=== PATIENT | female | born 1980 | race Caucasian/White ===

== ENCOUNTER → 2017-02-26 | Outpatient (CLI) | payer MEDICAID ==
--- NOTE | 2017-02-27 11:56 | WWHP ---
DATE OF SERVICE: 02/26/2017 CHIEF COMPLAINT: The patient is here for her routine gynecologic exam. HPI: This is a 36-year-old G1, P1 with an LMP of 02/22/17. The patient has a ParaGard IUD in place since 2011. She states she has been having worsening moodiness especially during the one week prior to each period. She also can feel very angry at those times. She has also noticed her periods are heavier with the ParaGard IUD. She states she has had similar symptoms in the past and had used oral contraceptives even while on the ParaGard IUD. She would like to go back on oral contraceptives for these symptoms. She had previously used Prozac for similar symptoms, but did not do well with this. She also used Wellbutrin, which caused her to be very tired. She had used the Mirena IUD in the past, but this caused frequent yeast infections. She feels strongly that she would like to use oral contraceptives, but continue with the ParaGard IUD in place. She states Triphasic oral contraceptives seem to make symptoms worse and would like to go on a monophasic pill. 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 She denies any other medical problems. MEDICATIONS: 1. Ventolin inhaler p.r.n.. 2. Multivitamin daily. 3. Tums 1 daily. 4. Vitamin D supplement 5000 units daily, which she only takes during the winter. 5. Anton Wort daily. ALLERGIES: No known drug allergies. PAST SURGICAL HISTORY: Surgery for a patent ductus arteriosus at 2 weeks of age. PAST MASTICATOR HISTORY: Menses are regular every 35 days and she has not history of STDs. SOCIAL HISTORY: She denies tobacco and drug use and has 4 to 5 alcoholic drinks per week. 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 FAMILY HISTORY: Grandmother had TIAs. Grandfather had lung cancer and heart disease and her other grandfather had diabetes. REVIEW OF SYSTEMS: She has gained about 7 pounds over the last year. She denies respiratory or cardiac problems. GI: She has had some constipation, which is not new for her. PHYSICAL EXAM: Blood pressure is 106/71. Height 5 feet 5 inches. Weight 117 pounds. Temperature 98.4. Pulse is 92. This is a well-developed, well-nourished white female who is alert and oriented x3 in no acute distress. HEENT is within normal limits. NECK: Supple without mass or thyromegaly. CHEST AND LUNGS: Clear to auscultation. HEART: Regular rate and rhythm. Breasts are without mass or discharge. Axillary exam is negative for adenopathy. BACK: Negative for CVA tenderness. ABDOMEN: Soft, nontender without palpable masses. PELVIC EXAM: Normal external genitalia .Cervix and vagina reveal a small amount of menstrual blood in the vagina consistent with her menses. The cervix appears normal. The IUD string protrudes from the cervix about 1 cm. There is no cervical motion tenderness. The uterus is mid position, nongravid size and nontender. There are no palpable adnexal masses or tenderness. Rectal exam was refused by the patient. EXTREMITIES: Nontender. IMPRESSION: 1. A 36-year-old female with normal gynecologic exam. 2 . ParaGard IUD is in place. 3. Premenstrual symptoms consisting of moodiness and feelings of anger. 4. Mild hypermenorrhea. PLAN: 1. Pap smear was deferred, since she had a normal one less than 2 years ago. 2. Self-breast examination was discussed. 3. We have discussed her symptoms and we have discussed options including meclofenamate sodium and SSRI types of medications. She would like to go back on oral contraception. We have discussed risks of oral contraception including increased risk for blood clots. She understands these things and would like to start on monophasic control pill. A prescription for Ortho-Cyclen was given to the patient and she will start this today and use as directed. 4. She will return in one year and p.r.n. MTDD
== END ==
LOC: WWCWWP 11:23
PROVIDERS: ATTEND Obstetrics & Gynecology
DX: Z01.419 Encounter for gynecological examination (general) (routine) without abnormal findings (principal)

== ENCOUNTER → 2018-03-04 | Outpatient (CLI) | payer MEDICAID ==
[2018-03-04 11:51] VITALS: BP 121/84; PULSE 77; TEMP 98; BMI 44.4
--- NOTE | 2018-03-04 12:37 | P.HPOB ---
History of Present Illness H&P Date: 03/04/18 Chief Complaint: The patient is here for her routine gynecologic exam. This is a 37-year-old with an LMP of 02/16/2018. She has a ParaGard IUD in place since January 2012. She did use control pills for most of the year because of various symptoms including premenstrual moodiness and heavy menses. She stopped the control pill last month because of breast soreness and vaginal dryness. She is complaining of moodiness the week before her menses. This improves during her menstrual flow, but she feels depressed after her menses has ended. She previously was on Cymbalta and later changed to Effexor. She felt ill when she missed pills and when she tried to stop the effects are in the past. She has seen a psychologist in the past. She denies any current suicidal ideation, however, she states the depression can get pretty bad at times. She is otherwise without complaints. Review of Systems The patient has gained 4 pounds over the last year. She denies respiratory or cardiac problems. G.I.: occasional constipation. Past Medical History Additional Past Medical History / Comment(s): Mild emphysema related to being born prematurely. Past TRANSPORTATION LEAD history: she has a ParaGard IUD in place. She has no history of STDs. History of Any Multi-Drug Resistant Organisms: None Reported Additional Past Surgical History / Comment(s): Surgery for patent ductus arteriosus at 2 weeks of age. 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 - Past Family History Mother Family Medical History: No Reported History Additional Family Medical History / Comment(s): Grandfather had flung and pancreatic cancer along with heart disease. Medications and Allergies Home Medications Medication Instructions Recorded Confirmed Type Multivit with Calcium,Iron,Min 1 each PO DAILY 05/06/15 03/04/18 History [Women's Daily Multivitamin] Bryan's Wort 300 mg PO TID 03/04/18 03/04/18 History Allergies Allergy/AdvReac Type Severity Reaction Status Date / Time No Known Allergies Allergy Verified 03/04/18 11:46 Exam Vital Signs Temp Pulse BP 07/17/18 11:46 98.0 F 77 121/84 Intake and Output 03/03/18 03/04/18 03/04/18 22:59 06:59 14:59 Other: Weight 121 kg Height 5'5", correction: weight 121 pounds, BMI 20.1. This is a well-developed well-nourished white female who is alert and oriented times 3 in no acute distress. HEENT: Within normal limits. NECK: Supple without mass or thyromegaly. CHEST AND LUNGS: Clear to auscultation. HEART: Regular rate and rhythm. BREASTS: Are without mass or discharge. AXILLARY EXAM: Negative for adenopathy. BACK: Negative for CVA tenderness. ABDOMEN: Soft, nontender, without palpable masses. PELVIC EXAM: Normal external genitalia. Cervix and vagina appear normal with a white IUD stream protruding approximately 1 cm from the cervical office. There is no unusual discharge. There is no evidence of prolapse. The uterus is midposition, nongravid size and nontender. There are no palpable adnexal masses or tenderness. RECTAL EXAM: refused by the patient. EXTREMITIES: Nontender. IMPRESSION: 1. 37 year old female with normal gynecologic exam with guard IUD in place. 2. Pre-menstrual moodiness and post menstrual depression. The patient did not have significant improvement with oral contraception. The depression can be moderate at times. 3. Mild hypermenorrhea with the ParaGard IUD. PLAN: 1. Pap smear was performed. 2. Breast awareness was discussed. 3. We have had a long discussion regarding her moodiness and depressed feelings. She will be referred to Dr. Velazquez , the psychiatrist, for further evaluation and possible treatment with medications. She was instructed to call or seek immediate help if she's having worsening symptoms or any suicidal ideation. 4. We can consider trial of meclofenamate sodium if she is having issues with hypermenorrhea with the ParaGard IUD. 5. She will return in one year and PRN.
--- NOTE | 2018-03-12 13:25 | P.PN ---
Progress Note - Text Progress Note Date: 03/12/18 OUTPATIENT FOLLOW-UP NOTE TEST(S)/RESULTS: Pap smear from 03/04/2018 was negative. METHOD OF NOTIFICATION: she was notified by phone PATIENT COMMENTS: patient understands this result. DIAGNOSIS: negative Pap smear DISCUSSION: we also discussed how we were unable to make a referral to Dr. Velazquez's office since he is not accepting new patients at this time. She was given the names of 3 different mental health/counseling centers including [facility], [facility], and [facility]. The patient states she will be calling one of these to be seen. She was instructed to call if she has any problems getting in to one of these places. She initially sent a request to have her prescription for oral contraceptives refilled prior to being seen on 03/04/2018. She was using oral contraceptives for cyclic mood changes. She understands that we will not be using oral contraceptives for this at this time, but I would like her to be seen for her mental health concerns. PLAN: the patient will be making an appointment for mental health counseling and care. She will also return in one year and PRN
== END ==
LOC: WWCWWP 11:18
PROVIDERS: ATTEND Obstetrics & Gynecology
DX: Z53.9 Procedure and treatment not carried out, unspecified reason (principal)

== ENCOUNTER → 2018-09-29 | Outpatient (CLI) | payer MEDICAID ==
[2018-09-29 12:17] LABS: Basophils # (A) 0.1 k/uL (0-0.2); Basophils % (A) 1 %; Eosinophils # (A) 0.2 k/uL (0-0.7); Eosinophils % (A) 3 %; HCT 41.8 % (34.0-46.0); HGB 14.3 gm/dL (11.4-16.0); Lymphocytes # (A) 1.3 k/uL (1.0-4.8); Lymphocytes % (A) 29 %; MCHC 34.3 g/dL (31.0-37.0); MCV 90.2 fL (80.0-100.0); Mean Platelet Volume 6.5; Monocytes # (A) 0.4 k/uL (0-1.0); Monocytes % (A) 9 %; Neutrophils # (A) 2.6 k/uL (1.3-7.7); Neutrophils % (A) 56 %; Platelet Count 225 k/uL (150-450); RBC 4.63 m/uL (3.80-5.40); RDW 12.2 % (11.5-15.5); WBC 4.6 k/uL (3.8-10.6)
== END | disposition home or self-care (01) ==
LOC: LABPAT 10:51
PROVIDERS: ATTEND Obstetrics & Gynecology
DX: Z01.812 Encounter for preprocedural laboratory examination (principal); Z64.0 Problems related to unwanted pregnancy
CPT/HCPCS: 85025

== ENCOUNTER 2018-10-14 06:16 | Day surgery (SDC) | payer MEDICAID ==
[2018-10-09 15:03] VITALS: BMI 20.7
--- NOTE | 2018-10-10 13:52 | HP ---
HISTORY AND PHYSICAL DATE OF SERVICE: 10/14/2018 HISTORY: This is a 38-year-old 1, para 1 woman who desires permanent sterility. She currently has an intrauterine device and would like to have this removed and undergo tubal sterilization. She is scheduled to undergo bilateral tubal ligation with Filshie clip application. She also has a large left flank lipoma that will be removed at the same time. ALLERGIES: None. MEDICATIONS: 1. ParaGard intrauterine device. 2. Symbicort. 3. Zoloft. PAST MEDICAL HISTORY: Asthma and anxiety. PAST SURGICAL HISTORY: Heart valve repair in 1980. WELDER GUN PAST HISTORY: She is a 1, para 1, with a history of 1 normal spontaneous vaginal delivery. She currently has a ParaGard IUD in place. No history of abnormal Pap smears or STDs. FAMILY HISTORY: Noncontributory. SOCIAL HISTORY: She is . Negative tobacco, alcohol, and drug use. REVIEW OF SYSTEMS: She has regular once per month menses. She denies fevers, chills, nausea, vomiting, diarrhea, constipation, shortness of breath, chest pain, palpitations. PHYSICAL EXAM: Weight 124 pounds, height 5 feet 5 inches, blood pressure 110/80. HEENT exam is unremarkable with no palpable lymphadenopathy or thyromegaly. The heart is a regular rate and rhythm with no detectable murmur. The lungs are clear to auscultation bilaterally. She has an approximately 5 x 5 cm left mid axillary soft tissue mass on pelvic examination. She has normal female external genitalia without lesions or irritation. On bimanual examination, the uterus is small, freely mobile and in the midline with no adnexal abnormalities. IUD strings are present at the cervical os. ASSESSMENT: This is a 38-year-old 1, para 1 woman who desires permanent sterility. We have discussed options for contraception in detail and she requests IUD removal. She understands the risks associated with laparoscopic tubal ligation, including bleeding, laparotomy, infection, damage to bowel, bladder, ureters and/or other intrapelvic or intraabdominal structures, anesthesia complications, risk of failure of the tubal ligation and/or ectopic . IUD will be removed at the time. She understands these risks, consent is obtained and she agrees to proceed. She is scheduled on 10/14/2018. MMODL / IJN: [id number] /
[~2018-10-14 06:16] MED LIST: DEXAMETHASONE SOD PHOSPHATE 10 MG/ML 1 ML VIAL IV ONE; LACTATED RINGERS 1,000 ML IV SCH; MIDAZOLAM (PF) 2 MG/2 ML VIAL IV PRN; ONDANSETRON 4 MG/2 ML VIAL IVP ONE; SCOPOLAMINE 1.5MG/72HR PATCH TRANSDERM ONE; ceFAZolin IN SWFI 2 GM/20 ML SYRINGE IVP ONE
[2018-10-14] MEDS ORDERED: LIDOCAINE 1% 20 ML VIAL (10MG/ML) FOR IV START INTRADERMA ONE (06:50)
[2018-10-14 06:57] VITALS: RESP 16
[2018-10-14] MEDS ORDERED: fentaNYL (PF) 50 MCG/ML 2 ML AMP ONE (07:28)
[2018-10-14] MEDS ORDERED: MIDAZOLAM 2 MG/2 ML VIAL ONE (07:28)
[2018-10-14] MEDS ORDERED: PROPOFOL 10 MG/ML 20 ML VIAL IV ONE (07:28)
[2018-10-14] MEDS ORDERED: SUCCINYLCHOLINE CHLORIDE 100 MG/5 ML SYR IV ONE (07:28)
[2018-10-14] MEDS ORDERED: LIDOCAINE 1% INJ 10MG/ML (20 ML MDV) ONE (07:28)
[2018-10-14] MEDS ORDERED: KETOROLAC 30 MG/ML 1 ML VIAL ONE (07:28)
[2018-10-14] MEDS ORDERED: BUPIVACAINE (PF) 0.25% 30 ML VIAL SQ ONE (07:58)
--- NOTE | 2018-10-14 08:15 | P.OP ---
Date of Procedure: 10/14/18 Preoperative Diagnosis: Undesired fertility Postoperative Diagnosis: Same Procedure(s) Performed: Laparoscopic bilateral tubal ligation with Filshie clips Anesthesia: AUDRA Surgeon: Naomi Lee Estimated Blood Loss (ml): 5 Urine output (ml): 25 Pathology: none sent Condition: stable Indications for Procedure: Undesired fertility Operative Findings: Normal-appearing bilateral fallopian tubes and ovaries, grossly normal upper abdomen to inspection Description of Procedure: After the patient was met in the preoperative holding area and all questions were answered, she was taken to the operating room where anesthetic was administered without incident. She is in positioned, prepped and draped in the low lithotomy position. Bladder was drained for approximately 25 mL of clear urine. Speculum was placed in the vagina and the cervix was grasped anteriorly with a single-tooth tenaculum. [place] uterine manipulator was placed. Attention was then turned to the abdomen and gloves were changed. A 5 mm skin incision was made immediately superior to the umbilicus. The anterior abdominal wall was grasped and elevated. The Veress needle was introduced. Saline drop test indicated intraperitoneal placement. Initial filling pressure was 0 mm. The abdomen was then insufflated to a total filling pressure of 15 mm. The Veress needle was removed and the optical blade less 5 mm trocar was introduced. Camera was introduced under direct visualization. Under direct visualization a suprapubic 8 mm port was placed. The patient was then placed in Trendelenburg and the bowel was swept out of the pelvis with a blunt probe. The uterus, fallopian tubes and ovaries were inspected. The Filshie clip construction trench digger was introduced. The right fallopian tube was identified and carried out visually to the fimbriated end. Filshie clip was then applied completed transecting the fallopian tube in the mid ampullary portion. Similarly the left fallopian tube was identified and visually carried out to fimbriated end. Filshie clip was then utilized to completely transect the tube in the mid ampullary portion. Visual inspection again noted appropriate placement of Filshie clips. Instruments were then removed and the abdomen was desufflated of CO2 gas. 4-0 Monocryl was then utilized to close each of the skin incisions and both were infused with 2 mL's of Sensorcaine. A uterine manipulator was then removed. Dressings were applied. The case was then turned over to Dr. Gutiérrez for removal of left flank lipoma.
[2018-10-14] MEDS ORDERED: BUPIVACAIN-EPI 0.5%-1:200,000 30 ML VIAL SQ ONE (08:18)
[2018-10-14] MEDS ORDERED: LACTATED RINGERS 1,000 ML IV ONE ×2 (08:21→09:14)
--- NOTE | 2018-10-14 08:43 | P.OP ---
Date of Procedure: 10/14/18 Preoperative Diagnosis: Left flank lipoma Postoperative Diagnosis: Left flank lipoma Procedure(s) Performed: Excision of lipoma, 4 x 3 cm Anesthesia: AUDRA Surgeon: Chava Gutiérrez Pathology: other (Lipoma) Condition: stable Disposition: same day Indications for Procedure: 38-year-old female presented to the office with complaints of lipoma of the left flank. She is scheduled for tubal ligation with Dr. Lee and has requested for excision of the lipoma at the same time. The patient was explained the risks, benefits and alternatives to the procedure and did provide consent prior to attending the operating suite. Operative Findings: Left flank lipoma Description of Procedure: After the gynecologic procedure was completed, the patient was prepped and draped in regular sterile fashion with her left flank exposed. Local anesthetic was administered and an incision was made over the palpable lipoma site. Dissection was carried towards the lipoma. The lipoma was known to be submuscular and muscle was incised to evacuate the lipoma. Once the lipoma was clearly visualized and was removed in its entirety. Hemostasis was maintained. The muscular layer was then closed with interrupted Vicryl suture. Skin was then closed with multiple 4-0 Vicryl subcuticular suture. Sterile dressing was applied. The patient was awakened in the operating suite and taken to postanesthesia care unit in stable condition.
[2018-10-14 08:56] VITALS: TEMP 97.3
[2018-10-14] MEDS ORDERED: MEPERIDINE 50 MG/ML SYRINGE IVP ONE (09:04)
[2018-10-14] MEDS: HYDROmorphone 0.5 MG/0.5 ML SYRINGE IVP PRN ×2 (09:21→09:27)
[2018-10-14] MEDS ORDERED: ONDANSETRON 4 MG/2 ML VIAL IVP ONE (10:09)
[2018-10-14] MEDS ORDERED: METOCLOPRAMIDE 5 MG/ML 2 ML VIAL IVP ONE (10:29)
[2018-10-14 11:28] VITALS: BP 104/66; PULSE 98
== END 2018-10-14 11:50 | disposition home or self-care (01) ==
LOC: OR 06:16
PROVIDERS: ATTEND Surgery
DX: Z30.2 Encounter for sterilization (principal); D17.1 Benign lipomatous neoplasm of skin and subcutaneous tissue of trunk; R19.00 Intra-abdominal and pelvic swelling, mass and lump, unspecified site; Z97.5 Presence of (intrauterine) contraceptive device; J45.909 Unspecified asthma, uncomplicated; F32.9 Major depressive disorder, single episode, unspecified; F41.9 Anxiety disorder, unspecified; Z79.51 Long term (current) use of inhaled steroids; Z79.899 Other long term (current) drug therapy
CPT/HCPCS: 81025; 88304; 58671; 21933; J2250; J1100; J2765; J2175; J2405; J2001; J3010; J1885; J0330; J2704; J1170; J0690

== ENCOUNTER 2021-02-18 17:45 | Emergency (ER) | payer MEDICAID ==
[2021-02-18 18:01] VITALS: TEMP 97.9
--- NOTE | 2021-02-18 18:08 | ED ---
General Adult HPI - General Chief complaint: Fall Stated complaint: Fall from ladder Time Seen by Provider: 02/18/21 17:55 Source: patient, EMS, RN notes reviewed Mode of arrival: EMS Limitations: no limitations - History of Present Illness Initial comments: Patient is a pleasant 40-year-old female presenting to the emergency department from a fall. Incident occurred prior to arrival. Patient was on a ladder, approximately 6 feet up when the ladder tipped and fell towards the left. Patient's right foot got caught in the wrong. Patient is having discomfort mostly of her right foot. Discomfort was 7/10 however discomfort now is only 2/10 following medication by EMS. Patient does have some nausea. No head injury or loss of consciousness. No neck or back pain. No chest pain or dyspnea. No abdominal pain. Patient does have some discomfort of both of her knees. - Related Data Home Medications Medication Instructions Recorded Confirmed Multivit with Calcium,Iron,Min 1 each PO DAILY 05/06/15 10/09/18 [Women's Daily Multivitamin] Budesonide-Formot 160-4.5 Mcg 2 puff INHALATION BID PRN 10/09/18 10/09/18 [Symbicort 160-4.5 Mcg Inhaler] Cephalexin [Keflex] 500 mg PO Q12HR 10/09/18 10/09/18 Sertraline [Zoloft] 50 mg PO DAILY 10/09/18 10/09/18 Previous Rx's Medication Instructions Recorded Ibuprofen [Motrin] 600 mg PO Q6HR PRN #20 tab 02/18/21 Allergies Allergy/AdvReac Type Severity Reaction Status Date / Time No Known Allergies Allergy Verified 10/09/18 14:57 Review of Systems ROS Statement: Those systems with pertinent positive or pertinent negative responses have been documented in the HPI. ROS Other: All systems not noted in ROS Statement are negative. Constitutional: Denies: fever Eyes: Denies: eye pain ENT: Denies: ear pain Respiratory: Denies: cough Cardiovascular: Denies: chest pain Endocrine: Denies: fatigue Gastrointestinal: Denies: abdominal pain Genitourinary: Denies: dysuria Musculoskeletal: Reports: as per HPI Skin: Denies: rash Neurological: Denies: weakness Past Medical History Past Medical History: No Reported History Additional Past Medical History / Comment(s): Mild emphysema related to being born prematurely. Past RN SCHOOL history: she has a ParaGard IUD in place. She has no history of STDs. History of Any Multi-Drug Resistant Organisms: None Reported Past Surgical History: Coronary Bypass/CABG Additional Past Surgical History / Comment(s): Surgery for patent ductus arteriosus at 2 weeks of age. Past Psychological History: Anxiety, Depression Smoking Status: Never smoker Past Alcohol Use History: Occasional Past Drug Use History: None Reported - Past Family History Mother Family Medical History: No Reported History Additional Family Medical History / Comment(s): Grandfather had flung and pancreatic cancer along with heart disease. General Exam Limitations: no limitations General appearance: alert, in no apparent distress Head exam: Present: atraumatic, normocephalic Eye exam: Present: normal appearance, PERRL ENT exam: Present: normal oropharynx Neck exam: Present: normal inspection. Absent: tenderness Respiratory exam: Present: normal lung sounds bilaterally Cardiovascular Exam: Present: regular rate, normal rhythm Expanded Peripheral pulses: 2+: Posterior Tibialis (R), Dorsalis Pedis (R) GI/Abdominal exam: Present: soft. Absent: tenderness Extremities exam: Present: other (Moderate tenderness bilateral anterior knees do the patella. Severe tenderness right proximal foot. Minimal tenderness right ankle. Distal extremities are neurovascularly intact.) Back exam: Present: normal inspection. Absent: tenderness, vertebral tenderness Neurological exam: Present: alert, oriented X3, CN II-XII intact. Absent: motor sensory deficit Psychiatric exam: Present: normal affect, normal mood Skin exam: Present: normal color Course Vital Signs 02/18/21 17:55 Temperature 97.9 F Pulse Rate 102 H Respiratory 18 Rate Blood Pressure 127/80 O2 Sat by Pulse 100 Oximetry Procedures - Orthopedic Splinting/Casting Injury #1 Side: right Lower Extremity Injury Location: short leg Lower Extremity Immobilizer: posterior splint Medical Decision Making - Medical Decision Making Patient reevaluated and updated. Splint placed. - Radiology Data Radiology results: image reviewed (Cervical spine x-ray, bilateral knee x-ray, right ankle and right foot x-ray revealed no acute traumatic process) Disposition Clinical Impression: Fall, Foot sprain Disposition: HOME SELF-CARE Condition: Stable Instructions (If sedation given, give patient instructions): Foot Sprain (ED) Additional Instructions: Please follow-up with primary care physician in the next day or 2 for recheck. If symptoms continue consider orthopedic follow-up as well, number given. Use crutches provided. Ice to affected area, at least 5 or 6 times daily for 20 minutes for the next 2-3 days. Prescription for Motrin 600s and to pharmacy. Return for increased pain, swelling, worsening symptoms or other concerns. Prescriptions: Ibuprofen [Motrin] 600 mg PO Q6HR PRN #20 tab PRN Reason: Pain Is patient prescribed a controlled substance at d/c from ED?: No Referrals: hSane Buckner DO [Primary Care Provider] - 1-2 days Earl Tabares DO [Doctor of Osteopathic Medicine] - 1-2 days Time of Disposition: 19:13
[2021-02-18] MEDS: ONDANSETRON 4 MG/2 ML VIAL IVP STA (18:34)
--- NOTE | 2021-02-18 18:40 | XR ---
EXAMINATION TYPE: XR cervical spine trauma DATE OF EXAM: 02/18/2021 COMPARISON: NONE HISTORY: Neck pain TECHNIQUE: 7 views FINDINGS: Vertebra have normal alignment. Posterior elements are intact. There are no cervical ribs. Neuroforamina are widely patent. The lateral axial facet joint is normal. There are no cervical ribs. IMPRESSION: Negative cervical spine exam. No fracture.
--- NOTE | 2021-02-18 18:41 | XR ---
EXAMINATION TYPE: XR foot complete RT DATE OF EXAM: 02/18/2021 COMPARISON: NONE HISTORY: Foot pain TECHNIQUE: 3 views FINDINGS: Metatarsals appear intact. Toes appear intact. I see no fracture nor dislocation. There are no erosions. IMPRESSION: Negative right foot exam. No fracture seen.
--- NOTE | 2021-02-18 18:42 | XR ---
EXAMINATION TYPE: XR knee complete bilateral DATE OF EXAM: 02/18/2021 COMPARISON: NONE HISTORY: Knee pain TECHNIQUE: 6 views FINDINGS: I see no fracture nor dislocation. Joint spaces appear normal. Knee joints have normal alig nment. There is soft tissue swelling anterior to the left patella tendon. There is no sign of joint e ffusion. IMPRESSION: Left side soft tissue swelling. No fracture.
--- NOTE | 2021-02-18 18:43 | XR ---
EXAMINATION TYPE: XR ankle complete RT DATE OF EXAM: 02/18/2021 COMPARISON: NONE HISTORY: Pain TECHNIQUE: 3 views FINDINGS: Ankle mortise is anatomic. I see no fracture nor dislocation. Joint spaces are normal. IMPRESSION: Negative right ankle exam.
[2021-02-18] MEDS: ACETAMINOPHEN TAB 500 MG TAB PO STA (19:26)
[2021-02-18 19:31] VITALS: BP 98/67; PULSE 78; RESP 16
== END 2021-02-18 19:50 | disposition home or self-care (01) ==
LOC: EC 17:45
DX: S93.601A Unspecified sprain of right foot, initial encounter (principal); R11.0 Nausea; J43.9 Emphysema, unspecified; F41.9 Anxiety disorder, unspecified; F32.9 Major depressive disorder, single episode, unspecified; Z79.1 Long term (current) use of non-steroidal anti-inflammatories (NSAID); Z79.51 Long term (current) use of inhaled steroids; W11.XXXA Fall on and from ladder, initial encounter
CPT/HCPCS: 73562; 72050; 73610; 73630; 99284; 96374; 29515; J2405

== ENCOUNTER → 2021-02-23 | Outpatient (CLI) | payer MEDICAID | END | disposition home or self-care (01) ==

== ENCOUNTER → 2021-03-01 | Outpatient (CLI) | payer MEDICAID ==
--- NOTE | 2021-03-01 14:53 | XR ---
EXAMINATION TYPE: XR chest 2V DATE OF EXAM: 03/01/2021 COMPARISON: 02/23/2021 HISTORY: Abnormal findings on previous chest x-ray TECHNIQUE: Frontal and lateral views of the chest are obtained. FINDINGS: There is no focal air space opacity, pleural effusion, or pneumothorax seen. The cardiac silhouette size is within normal limits. The osseous structures are intact. IMPRESSION: No acute cardiopulmonary process.
== END | disposition home or self-care (01) ==
LOC: RADXRMAIN 13:52
PROVIDERS: ATTEND Family Medicine
DX: R91.8 Other nonspecific abnormal finding of lung field (principal)
CPT/HCPCS: 71046

== ENCOUNTER → 2022-05-04 | Outpatient (CLI) | payer MEDICAID ==
--- NOTE | 2022-05-04 13:45 | US ---
EXAMINATION TYPE: US pelvis complete transvag DATE OF EXAM: 05/04/2022 COMPARISON: NONE CLINICAL HISTORY: R10.2 PELVIC AND PERINEAL PAIN. Patient states she had 2 IUD's in the past that horan ve been removed but since her tubal ligation 4 years ago, she has had pelvic pain TECHNIQUE: TA/TV. Transabdominal sonographic images of the pelvis were acquired. Transvaginal sono graphic images Date of LMP: 04/06/2022 EXAM MEASUREMENTS: Uterus: 9.5 x 4.9 x 4.1 cm Endometrial Stripe: 1.0 cm Right Ovary: 3.9 x 2.1 x 1.5 cm Left Ovary: 2.8 x 3.0 x 2.0 cm 1. Uterus: antegrade, wnl 2. Endometrium: IUD seen within fundus, patient still states it was removed 3. Right Ovary: wnl 4. Left Ovary: wnl 5. Bilateral Adnexa: wnl 6. Posterior cul-de-sac: wnl IMPRESSION: 1. Pelvic ultrasound appears unremarkable. 2. Note is made of an linear echogenic foreign body within the uterus which could be compatible with an IUD. Patient reports IUD has been removed.
--- NOTE | 2022-05-08 08:16 | MM ---
Reason for Exam: Screening (asymptomatic). Patient History: Menarche at age 15. First Full-Term at age 31. Late child-bearing (after 30). Last menstrual period: 04/05/2022 Risk Values: Tamara 5 year model risk: 0.7%. NCI Lifetime model risk: 12.5%. Tissue Density: The breast tissue is extremely dense which could obscure a lesion on mammography. Findings: Analyzed By CAD. Asymmetry seen on left MLO view posterior depth measuring up to 13 mm. Overall Assessment: Incomplete: need additional imaging evaluation, BI-RAD 0 Management: Diagnostic Mammogram of the left breast. A clinical breast exam by your physician is recommended on an annual basis and results should be correlated with mammographic findings. Electronically signed and approved by: Jhonny Lozada DO
== END | disposition home or self-care (01) ==
LOC: RADUSWWP 12:43
PROVIDERS: ATTEND Family Medicine
DX: Z12.31 Encounter for screening mammogram for malignant neoplasm of breast (principal); T19.3XXA Foreign body in uterus, initial encounter
CPT/HCPCS: 76830; 76856; 77067

== ENCOUNTER → 2022-05-14 | Outpatient (CLI) | payer MEDICAID ==
--- NOTE | 2022-05-14 14:27 | MM ---
Reason for Exam: Additional evaluation requested from abnormal screening. Last screening mammogram was performed less than 1 month ago. Patient History: Menarche at age 15. First Full-Term at age 31. Late child-bearing (after 30). Risk Values: Tamara 5 year model risk: 0.7%. NCI Lifetime model risk: 12.5%. Prior Study Comparison: 05/04/2022 Bilateral MG screening mammo w CAD, [facility]. Tissue Density: Left: The breast tissue is heterogeneously dense. This may lower the sensitivity of mammography. Findings: Analyzed By CAD. The superior posterior asymmetric density appears to disperse on additional views. Given the appearance on the screening exam in the lateral priors for comparison, precautionary 6 month follow-up recommended. Overall Assessment: Probably benign, BI-RAD 3 Management: Diagnostic Mammogram of the left breast in 6 months. 1. Patient should continue monthly self breast exams. 2. A clinical breast exam by your physician is recommended on an annual basis. 3. This exam should not preclude additional follow-up of suspicious palpable abnormalities. Electronically signed and approved by: Homar Leung M.D. Radiologist
== END | disposition home or self-care (01) ==
LOC: RADMAMWWP 13:36
PROVIDERS: ATTEND Family Medicine
DX: R92.8 Other abnormal and inconclusive findings on diagnostic imaging of breast (principal)
CPT/HCPCS: 77061; 77065

== ENCOUNTER → 2023-05-22 | Outpatient (CLI) | payer MEDICAID ==
--- NOTE | 2023-05-23 09:47 | MM ---
Reason for Exam: Screening (asymptomatic). Last mammogram was performed 1 year(s) and 1 month(s) ago. Patient History: Menarche at age 15. First Full-Term at age 31. Late child-bearing (after 30). Risk Values: Tamara 5 year model risk: 0.8%. NCI Lifetime model risk: 12.4%. Prior Study Comparison: 05/04/2022 Bilateral MG screening mammo w CAD, [facility]. 05/14/2022 Left MG 3D work up w/cad , [facility]. Tissue Density: The breast tissue is heterogeneously dense. This may lower the sensitivity of mammography. Findings: Analyzed By CAD. There is no suspicious group of microcalcifications or new suspicious mass in either breast. Overall Assessment: Benign, BI-RAD 2 Management: Screening Mammogram of both breasts in 1 year. . Patient should continue monthly self-breast exams. A clinical breast exam by your physician is recommended on an annual basis. This exam should not preclude additional follow-up of suspicious palpable abnormalities. Note on Tamara scores and lifetime risk: 1. A Tamara score greater than 3% is considered moderate risk. If this is the case, consider specialist referral to assess eligibility for a risk reducing agent. 2. If overall lifetime risk for the development of breast cancer is 20% or higher, the patient may qualify for future screening with alternating mammogram and breast MRI. Electronically signed and approved by: Prem Patricia M.D. Radiologis
== END | disposition home or self-care (01) ==
LOC: RADMAMWWP 10:23
PROVIDERS: ATTEND Family Medicine
DX: Z12.31 Encounter for screening mammogram for malignant neoplasm of breast (principal)
CPT/HCPCS: 77063; 77067